=== PATIENT | female | born 1930 | race Caucasian/White ===

== ENCOUNTER 2018-05-21 19:16 | Inpatient (IN) | payer OTHER ==
[~2018-05-21] VITALS: Ht 160 cm; Wt 90.8 kg
--- NOTE | ~2018-05-21 | EKG ---
[address] [address] ELECTROCARDIOGRAM REPORT Name: KHANHJERAMIE Room #: 204-P ADM IN M.R.#: [id number] Admission: 05/21/18 Attend Phys: Lan Mcpherson MD Discharge: Date of : 34 Report #: [id number] THIS REPORT FOR: //name// [facility] ED Test Date: 2018-05-21 Test Time: 19:31:28 Pat Name: JERAMIE CASSIDY Department: Room: 204 Gender: F Appliquer Zigzag: SHARONA : 1930 Requested By: Ar Friedman Order Number: [id number] MD: Dani Rico Measurements Intervals [place] Rate: 106 P: 41 IN: 148 QRS: 16 QRSD: 71 T: 35 QT: 332 QTc: 441 Interpretive Statements Sinus tachycardia Otherwise no significant abnormality No previous ECG available for comparison Electronically Signed On 05-22-2018 8:41:18 CDT by Dani Rico [email or web address] <ELECTRONICALLY SIGNED> By: Dani Rico MD, [facility] 05/22/18 [phone] 30 Dani Rico MD, FACC /EPI
--- NOTE | ~2018-05-21 | HC ---
[facility] [place] [address] CONSULTATION Name: JERAMIE CASSIDY Room #: 204-P ADM IN M.R.#: [id number] Admission: 05/21/18 Attend Phys: Lan Mcpherson MD Discharge: Date of : 32 Report #: [id number] THIS REPORT FOR: //name// CC: Lna Mcpherson REFERRING PHYSICIAN: Dr. Mcpherson. REASON FOR REFERRAL: Hypoxia. HISTORY OF PRESENT ILLNESS: The patient is an 88-year-old -L[place] female who was brought to Emergency Room following a fall. She was found to be hypoxic. A pulmonary consultation was requested. 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 She normally uses a walker to ambulate. She apparently fell on the evening of admission. Currently, she feels somewhat better. She denies any dyspnea. She does complain of right upper chest pain. 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 Past history of tobacco use, having stopped smoking more than a year ago. She has smoked a total of 59 years. PAST SURGICAL HISTORY: Unremarkable. ALLERGIES: CODEINE, DEMEROL, MORPHINE, REACTIONS NOT SPECIFIED. MEDICATIONS: From the senior living include Pepcid, Lipitor, Ventolin HFA, Claritin, aspirin, DuoNeb, Plavix, amlodipine, Zestril, Tylenol, Breo. FAMILY HISTORY: Noncontributory. SOCIAL HISTORY: As mentioned above, the patient has smoked for more than 50 years, 59 years, she quit about a year ago. No prior history of alcohol use. REVIEW OF SYSTEMS: As mentioned above. It is notable for progressive general weakness and debility. PHYSICAL EXAMINATION: GENERAL: She is awake, alert, in no apparent distress. She appears mildly tachypneic. VITAL SIGNS: Temperature is 98 degrees Fahrenheit, pulse is 80, respiratory rate is 24, blood pressure 140/75 mmHg, saturation 100%. HEENT: Normocephalic, atraumatic. NECK: Supple, without any lymphadenopathy or thyromegaly. [facility] [address] [place] [address] CONSULTATION Name: JERAMIE CASSIDY Room #: 204-P ADM IN M.R.#: [id number] Admission: 05/21/18 Attend Phys: Lan Mcpherson MD Discharge: Date of : 32 Report #: [id number] CHEST: Breath sounds are decreased bilaterally. Few scattered crackles in the bases. CARDIOVASCULAR: Normal S1, S2. There are no murmurs or gallop. There is no JVD. There is no carotid bruit. Pulses are 2+/4+ bilaterally. ABDOMEN: Soft, nontender, no organomegaly or masses felt. GENITOURINARY: Deferred. RECTAL: Deferred. EXTREMITIES: There are no cyanosis or clubbing, but remarkable 1-2+ bilateral pretibial edema. LABORATORY DATA: CT chest was reviewed. 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 BNP 629. EKG was grossly unremarkable for any acute ischemic changes. Sodium 137, potassium 4.4, chloride 104, CO2 of 26, BUN is 23, creatinine is 1.7. Liver enzymes are mildly abnormal. WBC 8800, hemoglobin 14.4, platelets are normal. Arterial blood gas revealed pH 7.33, pCO2 of 42, pO2 135 on 6 liters of O2. IMPRESSION: 1. Acute hypoxic respiratory failure in this 88-year-old -L[place]anese female. Chest CT as mentioned above. Etiology probably related to splinting due to chest wall pain. Pulmonary embolus is considered, though I do not think this is the primary event. No obvious evidence of pneumonia. 2. Chronic obstructive pulmonary disease, long history of tobacco use. 3. Renal insufficiency, presumed acute kidney injury. 4. History of chronic bronchitis. 5. Hypertension. 6. History of cerebrovascular accident without unilateral weakness. 7. Generalized debility and weakness with a history of falls. 8. Lower extremity edema appears to be chronic, we will obtain leg Doppler ultrasound given above events. RECOMMENDATIONS: 1. Agree with corticosteroids, bronchodilators. Agree with broad-spectrum antibiotics. 2. DVT and GI prophylaxis will be re-addressed. Recommend ultrasound of the lower extremities to rule out DVT. Ortho has been consulted regarding clavicular fracture. 3. With generalized weakness and frequent falls, the patient may benefit from PT, OT if able to participate. <ELECTRONICALLY SIGNED> By: Jung Parekh MD 05/23/18 [id number] Jung Parekh MD /nt
[2018-05-21 19:17] VITALS: BP 169/86
[2018-05-21 20:24] LABS: BE(vivo) -3.6 mmol/L (-2 to +3); HCO3 22.2 mmol/L (22.0-26.0); PCO2 42.7 mmHg (35.0-45.0); PO2 135.1 mmHg (80.0-100.0); pH 7.333 (7.360-7.450); sO2 98.5 % (92.0-98.0)
[2018-05-21 20:33] LABS: ABSOLUTE NEUTROPHILS 5.5 thou/uL (1.4-8.2); BASOPHILS 0.6 % (0.0-2.0); EOSINOPHILS 3.1 % (0.0-3.0); HEMATOCRIT 35.6 % (37.0-47.0); HEMOGLOBIN 11.4 gm/dL (12.0-15.0); LYMPHOCYTES 23.8 % (24.0-44.0); MCH 27.5 pg (26.0-34.0); MCV 85.9 fL (80.0-100.0); PLATELET COUNT 319 thou/uL (150-400); POLYS 62.5 % (36.0-66.0); RBC 4.15 mil/uL (4.20-5.00); RDW 14.5 % (10.5-14.5); WBC 8.8 thou/uL (4.0-11.0)
[2018-05-21 20:55] LABS: ANION GAP 7 mmol/L (7-16); BUN 23 mg/dL (7-18); CALCIUM 9.6 mg/dL (8.5-10.1); CHLORIDE 104 mmol/L (98-107); CO2 26 mmol/L (21-32); CREATININE 1.7 mg/dL (0.6-1.0); GLUCOSE 156 mg/dL (74-106); SODIUM 137 mmol/L (136-145)
[2018-05-21 21:03] LABS: ALBUMIN 3.5 g/dL (3.4-5.0); SGOT 39 U/L (15-37); SGPT 18 U/L (30-65); TOTAL BILIRUBIN 0.4 mg/dL (<0.1-1.0); TOTAL PROTEIN 7.7 g/dL (6.4-8.2); TROPONIN-I <0.06 ng/mL (<0.06)
[2018-05-21 21:28] VITALS: BP 116/67
[2018-05-21 21:37] VITALS: BP 116/67
[2018-05-21 21:49] VITALS: BP 99/63
[2018-05-22 00:02] VITALS: BP 125/70
[2018-05-22] MEDS ORDERED: PEPCID20 MG PO (01:03)
[2018-05-22] MEDS ORDERED: ATORVASTATIN CA40 MG PO (01:04)
[2018-05-22] MEDS ORDERED: VENTOLIN HFA 1818 GM INH (01:05)
[2018-05-22] MEDS ORDERED: CLARITIN10 MG PO (01:05)
[2018-05-22] MEDS ORDERED: CHILDREN'S ASPI81 M1 PO (01:06)
[2018-05-22] MEDS ORDERED: IPRAT-ALBUT 0.5-3 ML INH (01:07)
[2018-05-22] MEDS ORDERED: PLAVIX 75 MG TA75 M1 PO (01:08)
[2018-05-22] MEDS ORDERED: AMLODIPINE BESY10 MG PO (01:08)
[2018-05-22] MEDS ORDERED: LISINOPRIL10 MG PO (01:09)
[2018-05-22] MEDS ORDERED: TYLENOL325 MG PO (01:10)
[2018-05-22] MEDS ORDERED: BREO ELLIPTA 11 EACH INH (01:11)
[2018-05-22 04:38] VITALS: BP 147/91
[2018-05-22 07:35] VITALS: BP 134/79
[2018-05-22 11:45] VITALS: BP 146/75
[2018-05-22 15:40] VITALS: BP 126/78
[2018-05-22 21:26] VITALS: BP 137/70
[2018-05-23 03:50] VITALS: BP 135/70
[2018-05-23 03:54] LABS: CALCIUM 9.8 mg/dL (8.5-10.1); POTASSIUM 4.9 mmol/L (3.5-5.1)
[2018-05-23 04:06] VITALS: BP 118/59
[2018-05-23 04:51] LABS: HEMATOCRIT 34.9 % (37.0-47.0); MCH 27.2 pg (26.0-34.0); MCHC 31.5 g/dL (28.0-37.0); MCV 86.3 fL (80.0-100.0); RBC 4.05 mil/uL (4.20-5.00); RDW 14.4 % (10.5-14.5); WBC 7.9 thou/uL (4.0-11.0)
[2018-05-23 07:40] VITALS: BP 146/76
[2018-05-23 11:25] VITALS: BP 129/72
[2018-05-23 15:45] VITALS: BP 126/68
[2018-05-23 20:00] VITALS: BP 126/75
[2018-05-24 04:15] VITALS: BP 151/82
[2018-05-24 07:17] VITALS: BP 138/78
[2018-05-24 11:09] VITALS: BP 138/81
[2018-05-24 17:00] VITALS: BP 133/79
[2018-05-24 20:35] VITALS: BP 128/68
[2018-05-25 03:04] LABS: HEMATOCRIT 32.3 % (37.0-47.0); HEMOGLOBIN 10.3 gm/dL (12.0-15.0); MCH 27.3 pg (26.0-34.0); MCHC 31.9 g/dL (28.0-37.0); MCV 85.7 fL (80.0-100.0); RBC 3.77 mil/uL (4.20-5.00); RDW 14.7 % (10.5-14.5); WBC 6.7 thou/uL (4.0-11.0)
[2018-05-25 03:12] LABS: CREATININE 1.8 mg/dL (0.6-1.0); POTASSIUM 4.9 mmol/L (3.5-5.1)
[2018-05-25 04:15] VITALS: BP 129/76
[2018-05-25 07:28] VITALS: BP 159/87
[2018-05-25 11:25] VITALS: BP 139/85
[2018-05-25 16:30] VITALS: BP 121/86
[2018-05-25 21:25] VITALS: BP 127/99
[2018-05-26 04:45] VITALS: BP 144/81
[2018-05-26 07:47] VITALS: BP 122/71
[2018-05-26] MEDS ORDERED: SENNA PLUS TAB1 EACH PO (09:44)
[2018-05-26] MEDS ORDERED: LEVAQUIN 500 M500 M2 PO (09:45)
[2018-05-26] MEDS ORDERED: PREDNISONE 10 M10 MG PO (09:46)
[2018-05-26] MEDS ORDERED: HYDROCODONE-AP1 EAC6 PO (09:48)
[2018-05-26 11:23] VITALS: BP 118/64
[2018-05-26 15:05] VITALS: BP 128/73
== END 2018-05-26 19:00 | DRG 562 ==
LOC: ER 19:16 → EROBS 21:08 → 2N 21:08
PROVIDERS: Emergency Medicine; Internal Medicine
PROC: 05HC33Z Insertion of Infusion Device into Left Basilic Vein, Percutaneous Approach (ICD-10-PCS; principal; 2018-05-22)
DX: S42.001A Fracture of unspecified part of right clavicle, initial encounter for closed fracture (principal); J96.01 Acute respiratory failure with hypoxia; J44.1 Chronic obstructive pulmonary disease with (acute) exacerbation; F01.51 Vascular dementia, unspecified severity, with behavioral disturbance; J98.11 Atelectasis; I10 Essential (primary) hypertension; E78.5 Hyperlipidemia, unspecified; I12.9 Hypertensive chronic kidney disease with stage 1 through stage 4 chronic kidney disease, or unspecified chronic kidney disease; N18.3 Chronic kidney disease, stage 3 (moderate); I25.10 Atherosclerotic heart disease of native coronary artery without angina pectoris; Z88.6 Allergy status to analgesic agent; Z88.8 Allergy status to other drugs, medicaments and biological substances; Z86.73 Personal history of transient ischemic attack (TIA), and cerebral infarction without residual deficits; Z87.891 Personal history of nicotine dependence; Z79.82 Long term (current) use of aspirin; Z79.899 Other long term (current) drug therapy; W18.39XA Other fall on same level, initial encounter; Y93.89 Activity, other specified; Y92.89 Other specified places as the place of occurrence of the external cause; Y99.8 Other external cause status
CPT/HCPCS: 10081; 27000

== ENCOUNTER 2018-09-13 18:31 | Inpatient (IN) | payer OTHER ==
[~2018-09-13] VITALS: Ht 160 cm; Wt 75.3 kg
[~2018-09-13 18:31] MED LIST: AMLODIPINE BESY10 MG PO; ATORVASTATIN CA40 MG PO; BREO ELLIPTA 11 EACH INH; CHILDREN'S ASPI81 M1 PO; CLARITIN10 MG PO; HYDROCODONE-AP1 EAC6 PO; IPRAT-ALBUT 0.5-3 ML INH; LEVAQUIN 500 M500 M2 PO; LISINOPRIL10 MG PO; PEPCID20 MG PO; PLAVIX 75 MG TA75 M1 PO; PREDNISONE 10 M10 MG PO; SENNA PLUS TAB1 EACH PO; TYLENOL325 MG PO; VENTOLIN HFA 1818 GM INH
[2018-09-13 18:32] VITALS: BP 66/25
[2018-09-13 18:53] LABS: ABSOLUTE NEUTROPHILS 7.7 thou/uL (1.4-8.2); BASOPHILS 0.6 % (0.0-2.0); EOSINOPHILS 0.7 % (0.0-3.0); HEMOGLOBIN 10.5 gm/dL (12.0-15.0); LYMPHOCYTES 10.5 % (24.0-44.0); MCH 27.4 pg (26.0-34.0); MCHC 31.8 g/dL (28.0-37.0); MCV 86.2 fL (80.0-100.0); MONOCYTES 9.9 % (1.0-8.0); PLATELET COUNT 279 thou/uL (150-400); POLYS 78.3 % (36.0-66.0); RBC 3.83 mil/uL (4.20-5.00); RDW 16.2 % (10.5-14.5); WBC 9.8 thou/uL (4.0-11.0)
[2018-09-13 18:57] LABS: CREATININE 3.7 mg/dL (0.6-1.0); POTASSIUM 5.4 mmol/L (3.5-5.1)
[2018-09-13 19:04] LABS: PROTIME 10.7 Seconds (9.3-11.4)
[2018-09-13 19:06] LABS: ALBUMIN 2.8 g/dL (3.4-5.0); MAGNESIUM 2.3 mg/dL (1.8-2.4); TOTAL BILIRUBIN 0.2 mg/dL (<0.1-1.0); TOTAL PROTEIN 6.4 g/dL (6.4-8.2); TROPONIN-I 0.59 ng/mL (<0.06)
[2018-09-13 19:14] LABS: URINE BILIRUBIN NEGATIVE (Negative); URINE BLOOD 1+ (Negative); URINE CLARITY CLEAR; URINE COLOR YELLOW; URINE GLUCOSE-RANDOM* NEGATIVE (Negative); URINE KETONES NEGATIVE (Negative); URINE LEUKOCYTES-REFLEX NEGATIVE (Negative); URINE NITRITE-REFLEX NEGATIVE (Negative); URINE PROTEIN (DIPSTICK) TRACE (Negative); URINE SPECIFIC GRAVITY 1.025 (1.005-1.035); URINE UROBILINOGEN 0.2 E.U./dl (0.2-1.0)
[2018-09-13 19:21] LABS: CRYSTALS None Seen /LPF (None Seen); SQUAMOUS >10 Many /LPF (0-3); URINE WBC-REFLEX 0-5 Rare /HPF (0-5)
[2018-09-13 19:22] LABS: HYALINE CASTS 4-10 Moderate /LPF (None Seen); YEAST-REFLEX Present (None Seen)
[2018-09-13] MEDS ORDERED: SINGULAIR 10 MG10 M1 PO (19:52)
[2018-09-13] MEDS ORDERED: SEROQUEL 25 MG25 M1 PO (19:54)
[2018-09-13] MEDS ORDERED: BREO ELLIPTA 21 EACH INH (19:54)
[2018-09-13] MEDS ORDERED: LASIX 40 MG TAB40 M2 PO (19:55)
[2018-09-13] MEDS ORDERED: SPIRONOLACTONE25 M1 PO (19:55)
[2018-09-13 20:49] VITALS: BP 94/46
[2018-09-13 21:27] VITALS: BP 94/46
[2018-09-13 22:00] VITALS: BP 117/92
[2018-09-13 23:41] VITALS: BP 80/55
[2018-09-14 04:14] VITALS: BP 85/45
--- NOTE | 2018-09-14 05:33 | NUR ---
0530 NAEON. PT CONTINUES TO BE ALERT TO STIMULI ONLY. DOES NOT APPEAR IN DISTRESS. LOW UOP. CONT. HYPOTENSION BUT MAP IS CONSISTANTLY >60.
[2018-09-14 07:07] VITALS: BP 136/14
--- NOTE | 2018-09-14 08:52 | EKG ---
[address] [place] [address] ELECTROCARDIOGRAM REPORT Name: KHANHJERAMIE Room #: 202-P ADM IN M.R.#: [id number] Admission: 09/13/18 Attend Phys: Lan Mcpherson MD Discharge: Date of : 34 Report #: [id number] THIS REPORT FOR: //name// [facility] ED Test Date: 2018-09-13 Test Time: 19:11:04 Pat Name: JERAMIE CASSIDY Department: Room: 202 Gender: F Email Marketing Manager: GUILLERMINA : 1930 Requested By: Nixon Friedman Order Number: [id number] MD: Dani Rico Measurements Intervals [place] Rate: 71 P: 55 IN: 154 QRS: 39 QRSD: 95 T: 40 QT: 425 QTc: 462 Interpretive Statements Sinus rhythm No significant abnormality Compared to ECG 05/21/2018 19:31:28 Sinus tachycardia no longer present Electronically Signed On 09-14-2018 8:52:17 FOOD SCIENCE TECHNICIAN by Dani Rico [email or web address] <ELECTRONICALLY SIGNED> By: Dani Rico MD, [facility] 09/14/18 0852 10 10 Dani Rico MD, [facility] /EPI
[2018-09-14 11:10] VITALS: BP 118/89
[2018-09-14] MEDS ORDERED: FLONASE 0.05%50 MCG NASAL (13:30)
--- NOTE | 2018-09-14 14:03 | NUR ---
Case opened to follow for dc planing. Pt is a [facility] resident from [facility]. Customer Service Representative spoke with admissions and they are holding her bed. Dc program services planner to fax them a clinical update. Will follow to corrdinate her return when medically stable.
[2018-09-14 14:57] VITALS: BP 100/49
--- NOTE | 2018-09-14 15:52 | NUR ---
FAXED CLINICAL UPDATE TO CM SPOKE WITH TONY IN ADM. SHE RECEIVED UPDATE. DCP TO FOLLOW.
--- NOTE | 2018-09-14 16:10 | NUR ---
ASSESSMENTS DOCUMETED. VSS. PT MORE ALERT, ANSWERING QUESTIONS. EASY TO ARROUSE, BUT HAS BEEN SLEEPING FOR MOST OF THE DAY. FALL PRECAUTIONS IN PLACE. SPEECH EVAL DONE, DETERMINED DIET ORDER. PT NEEDS TO BE FED AND ENCOURAGED TO EAT. RODRIGUEZ IN PLACE. IV FLUIDS INFUSING, IV ABX GIVEN. SPOKE WITH SON ON THE PHONE AND UDATED ON PATIENT STATUS. WILL CONTINUE TO MONITOR.
[2018-09-14 20:15] VITALS: BP 99/48
[2018-09-15 04:55] VITALS: BP 106/60
--- NOTE | 2018-09-15 05:08 | NUR ---
pT MUCH MORE ALERT THIS SHIFT VS 24 HOURS AGO. SHE IS ALERT TO HERSELF AND KNOWS HAT SHE IS IN A HOSPITAL. THERE WERE NAEON.
[2018-09-15 05:23] LABS: HEMATOCRIT 30.3 % (37.0-47.0); HEMOGLOBIN 10.1 gm/dL (12.0-15.0); MCH 28.3 pg (26.0-34.0); MCHC 33.3 g/dL (28.0-37.0); RBC 3.56 mil/uL (4.20-5.00); RDW 16.6 % (10.5-14.5); WBC 9.7 thou/uL (4.0-11.0)
[2018-09-15 05:30] LABS: CALCIUM 8.5 mg/dL (8.5-10.1); POTASSIUM 5.1 mmol/L (3.5-5.1)
[2018-09-15 06:00] LABS: CREATININE 2.6 mg/dL (0.6-1.0)
[2018-09-15 07:57] VITALS: BP 122/86
[2018-09-15 11:39] VITALS: BP 120/89
--- NOTE | 2018-09-15 14:54 | NUR ---
Case discussed with the attending. No weekend dc anticipated. [facility] Nursing to updated family.
[2018-09-15 17:44] VITALS: BP 121/88
[2018-09-15 20:15] VITALS: BP 107/65
--- NOTE | 2018-09-15 22:17 | NUR ---
THE PATIENT IS ORIENTED TO SELF. SHE STATES THAT SHE IS NOT HUNGRY, HOWEVER SHE DID HAVE A PUDDING SO FAR THIS SHIFT. SHE IS A TOTAL FEED. THE PATIENT ALSO DOES NOT HAVE TEETH. SHE CLAIMS THAT SHE DOES NOT HAVE ANY AND CANNOT AFFORD TO GET THEM. THE PATIENT IS VERY RESTLESS. SHE IS PULLING AT HER LINES AND PLAYING WITH HER BLANKETS. SHE DENIES PAIN AT THIS TIME. HER ROOM IS ACCROSS FROM THE NURSES' STATION. WILL CONTINUE TO MONITOR.
--- NOTE | 2018-09-15 23:14 | NUR ---
PT PULLED OUT HER RODRIGUEZ AND IS PULLING AT HER IV LINE. HAD TO DISCONNECT IV FROM IV BAG. CALL IN TO DR MAXWELL. DR NUNN IS ON-CALL. PT IS TAKING HER CLOTHES OFF AND IS VERY RESTLESS TONIGHT. WAITING FOR CALL BACK.
--- NOTE | 2018-09-16 04:31 | NUR ---
THE PATIENT IS REFUSING TO DRINK ANYTHING. SHE IS REFUSING TO EAT ANYTHING. SHE WILL NOT TAKE ANY MEDICATION. THE PT'S IV'S HAVE INFILTRATED. SHE WILL NOT ALLOW ME TO PLACE NEW ONES IN. SHE IS ABLE TO ANSWER SOMETIMES IN ONE WORD ANSWERS. SHE HAS NOT SLEPT VERY MUCH THIS SHIFT. SHE IS INCONTINENT AND APPARENTLY UNABLE TO VOICE HER NEEDS. SHE CONTINUES TO UNDRESS HERSELF. SHE DOES NOT APPEAR TO BE IN PAIN.
[2018-09-16 05:20] VITALS: BP 140/81
[2018-09-16 07:15] VITALS: BP 143/76
--- NOTE | 2018-09-16 10:07 | NUR ---
PT STATUS - PT HAS REMOVED HER IV ACCESS, REFUSES MEDICATIONS, REFUSES IV LAB DRAW. WILL AWAIT PCP INSTRUCTIONS. PT'S TELE MONITOR MOVED TO POST AREAS TO PREVENT REMOVAL. PT WITH BED ALARM ACTIVE AND IN RM 202 FOR CLOSER OBSERVATIONS. WILL MONITOR.
[2018-09-16 11:20] VITALS: BP 128/91
[2018-09-16 16:00] VITALS: BP 134/61
[2018-09-16 20:15] VITALS: BP 162/71
--- NOTE | 2018-09-16 23:03 | NUR ---
THE PATIENT WILL NOT ANSWER ANY QUESTIONS. SHE IS REFUSING CARE. SHE DOES NOT APPEAR TO BE IN ANY PAIN. PO MEDICATIONS ON HOLD PER ORDERS. ASSESSMENT CHARTED. PT IS ABLE TO TURN HERSELF. WILL CONTINUE TO MONITOR.
[2018-09-17 04:45] VITALS: BP 121/95
[2018-09-17 05:38] LABS: HEMATOCRIT 32.5 % (37.0-47.0); HEMOGLOBIN 10.1 gm/dL (12.0-15.0); MCH 26.7 pg (26.0-34.0); RBC 3.78 mil/uL (4.20-5.00); RDW 16.3 % (10.5-14.5); WBC 7.7 thou/uL (4.0-11.0)
[2018-09-17 05:49] LABS: CALCIUM 8.7 mg/dL (8.5-10.1); CREATININE 1.8 mg/dL (0.6-1.0); MAGNESIUM 1.6 mg/dL (1.8-2.4); POTASSIUM 4.5 mmol/L (3.5-5.1)
[2018-09-17 07:25] VITALS: BP 104/84
[2018-09-17 11:35] VITALS: BP 128/70
[2018-09-17 15:45] VITALS: BP 107/73
--- NOTE | 2018-09-17 17:34 | NUR ---
ASSUMED CARE OF PATIENT AT 0700. PT/VITALS STABLE. DENIES ANY PAIN. ALERT AND ORIENTED TO SELF. ASSESSMENT CHARTED. PATIENT SLEEPING FOR ENTIRETY OF MORNING AND UPON AWAKING, REMOVED THE GAUZE COVER TO HER IV, TWO PATIENT ID BRACELETS, HER TOP PART OF HER GOWN AND STARTED PULLING ON HER RODRIGUEZ CATHETER. SHE WAS CALM DURING THIS ACTIVITY AND WHILE WE REDRESSED HER, HOWEVER SHE IMMEDIATELY STARTED TO REMOVE THESE ITEMS AGAIN AND STARTED TO GET AGGITATED WITH US CORRECTING HER. A CALL WAS PLACED TO DR. NUNN AND ARTIS LOMBARDI WAS ADDED TO HER MED LIST. PLAN IS TO CONTINUE WITH IV ABX AND FOLLOW WITH POC. PATIENT'S SON WAS AT THE BEDSIDE THIS AFTERNOON.
[2018-09-17 19:31] VITALS: BP 120/79
--- NOTE | 2018-09-17 21:54 | NUR ---
PT IS ONLY ORIENTED TO SELF. SHE IS ABLE TO ANSWER SOME QUESTIONS WITH ONE WORD ANSWERS. ASSESSMENTS CHARTED. WILL CONTINUE TO MONITOR.
[2018-09-18 04:10] LABS: HEMATOCRIT 32.2 % (37.0-47.0); HEMOGLOBIN 10.2 gm/dL (12.0-15.0); MCHC 31.7 g/dL (28.0-37.0); MCV 85.2 fL (80.0-100.0); RBC 3.78 mil/uL (4.20-5.00); RDW 16.3 % (10.5-14.5)
[2018-09-18 04:31] LABS: CALCIUM 8.9 mg/dL (8.5-10.1); CREATININE 1.7 mg/dL (0.6-1.0); POTASSIUM 3.9 mmol/L (3.5-5.1)
[2018-09-18 05:19] VITALS: BP 123/67
--- NOTE | 2018-09-18 07:32 | NUR ---
THE PATIENT PULLED OUT HER RODRIGUEZ CATHETER THIS AM. SHE DENIES PAIN. PT REMAINS CONFUSED. ORIENTED TO SELF. ABLE TO ANSWER VERY FEW QUESTIONS WITH ONE WORD ANSWERS. DOES NOT FOLLW COMMANDS MOST OF THE TIME. ATE TWO APPLESAUSES LAST SHIFT. REFUSED ANYTHING TO DRINK. REPORT GIVEN TO AM RN. PT CURRENTLY APPEARS TO BE SLEEPING.
[2018-09-18 08:00] VITALS: BP 98/60
--- NOTE | 2018-09-18 15:37 | NUR ---
ASSUMED CARE OF PT AT 0700. PT SLEEPING, SLOW TO AWAKEN. PT ANSWERS YES/NO QUESTIONS AND FOLLOWS COMMANDS. PT WILL EAT IF FED BY STAFF. PT'S BEHAVIOR WAS CALM AND SHE SLEPT MOST OF DAY. PT HAD BLOOD TINGE URINE (INCONTENENT), AND I WAS TOLD IN REPORT THAT PT HAD PULLED OUT HER RODRIGUEZ LAST NIGHT. PT VITALS WERE WITHIN NORMAL LIMITS AND SHE WAS SINUS RHYTHM ON TELEMETRY. WILL CONT WITH POC.
[2018-09-18 16:45] VITALS: BP 133/98
[2018-09-18 20:45] VITALS: BP 110/75
--- NOTE | 2018-09-18 22:55 | NUR ---
PT REMAINS CONFUSED. STILL WILL ONLY ANSWER SOME QUESTIONS WITH ONE WORD ANSWERS. ATE COME APPLESAUCE SO FAR THIS EVENING. DID NOT WANT DINNER. ASSESSMENT CHARTED. WILL CONTINUE TO MONITOR.
[2018-09-19 04:27] VITALS: BP 144/76
[2018-09-19 07:55] VITALS: BP 119/90
[2018-09-19] MEDS ORDERED: AUGMENTIN 500-1 EACH PO (09:40)
--- NOTE | 2018-09-19 12:51 | NUR ---
PT. DISCHARGING TODAY CM. FAXED DC ORDERS/SUMMARY TO FACILITY AND SPOKE WITH TONY IN ADM. SHE RECEIVED DC ORDERS AND ARRANGED WC VAN TRANSPORT FOR 1600 TODAY. NOTIFIED PT'S SON (FELIX) OF DISCHARGE AND TIME OF TRANSPORT. UNIT NOTITIED AND CHART COPY PER US. RN TO CALL REPORT TO [phone].
--- NOTE | 2018-09-19 16:36 | NUR ---
ASSUMED CARE OF PT AT 0700. PT SLEEPING AWAKENS TO LOUD VOICE. PT SOMETIMES CAN STATE HER NAME, SOMETIMES ANSWERS YES/NO QUESTIONS. PT MOSTLY NON VERBAL BUT OBEYS MOST COMMANDS. PT REQUIRES FEEDING AND ONLY ACCEPTED ENSURE PUDDING AND NECTAR THICK TEA. PT INCONTINENT OF BOWEL AND BLADDER. VITALS WITHIN NORMAL LIMITS, PT IS NOT ON TELEMETRY. PT HAS EPISODES OF NON PRODUCTIVE COUGHING. SON SAE CALLED FOR UPDATE. PT TO TRANSFER TO [facility]. REPORT GIVEN TO NURSE FLO. IV REMOVED.
== END 2018-09-19 16:52 | DRG 871 ==
LOC: ER 18:31 → EROBS 20:29 → 2N 20:29
PROVIDERS: Emergency Medicine; Internal Medicine; ADMIT Internal Medicine
DX: A41.9 Sepsis, unspecified organism (principal); J18.9 Pneumonia, unspecified organism; G92 Toxic encephalopathy; N17.0 Acute kidney failure with tubular necrosis; F03.91 Unspecified dementia, unspecified severity, with behavioral disturbance; E87.0 Hyperosmolality and hypernatremia; J44.0 Chronic obstructive pulmonary disease with (acute) lower respiratory infection; Z66 Do not resuscitate; I12.9 Hypertensive chronic kidney disease with stage 1 through stage 4 chronic kidney disease, or unspecified chronic kidney disease; E86.0 Dehydration; N18.9 Chronic kidney disease, unspecified; D64.9 Anemia, unspecified; Y95 Nosocomial condition; E86.9 Volume depletion, unspecified; R13.12 Dysphagia, oropharyngeal phase; E78.5 Hyperlipidemia, unspecified; Z86.73 Personal history of transient ischemic attack (TIA), and cerebral infarction without residual deficits; Z91.81 History of falling; Z68.29 Body mass index [BMI] 29.0-29.9, adult; Z87.891 Personal history of nicotine dependence; Z79.02 Long term (current) use of antithrombotics/antiplatelets; Z79.51 Long term (current) use of inhaled steroids; Z79.82 Long term (current) use of aspirin; Z79.899 Other long term (current) drug therapy; Z88.5 Allergy status to narcotic agent; Z88.8 Allergy status to other drugs, medicaments and biological substances
CPT/HCPCS: 10081